=== PATIENT | male | born 1960 | race Caucasian/White ===

== ENCOUNTER 2022-06-11 15:55 | Emergency (ER) | payer OTHER ==
[2022-06-11] MEDS ORDERED: Bacitracin Oint 1 GM U/D Packet TOP ONE (16:20)
[2022-06-11] MEDS ORDERED: Lidocaine 1% with EPINEPHrine 1:100,000 50 ML MDV INFILT ONE (16:23)
== END 2022-06-11 17:20 | disposition home or self-care (01) ==
LOC: JP.ED 15:55
DX: S61.411A Laceration without foreign body of right hand, initial encounter (principal); W29.8XXA Contact with other powered hand tools and household machinery, initial encounter
CPT/HCPCS: 12002; 99282; 99283